=== PATIENT | female | born 1980 | race American Indian/Alaskan Native ===

== ENCOUNTER 2017-04-28 18:20 | Observation (INO) | payer MEDICAID, OTHER ==
[2017-04-28 18:31] VITALS: BMI 50.8
[2017-04-28] MEDS ORDERED: Sodium Chloride 0.9% 1,000 ML IV STA (18:46)
--- NOTE | 2017-04-28 18:54 | ED PDOC ---
Arrival/HPI - General Chief Complaint: Abdominal Pain Time Seen by Provider: 04/28/17 18:23 Historian: Patient - History of Present Illness Narrative History of Present Illness (Text): 04/28/17 18:47 36yr old female presents today with upper and lower right sided abdominal pain that started suddenly at 4pm today and has been worsening. no medications taken for pain at home. pt states she hasnt had anything to eat since noon. pt denies back pain. no fever/chills. no vomiting. no diarrhea. no urinary symptoms. no cp or sob. no other complaints. Time/Duration: 1-3 hours Symptom Onset: Sudden Symptom Course: Worsening Quality: Stabbing Severity Level: 9 Past Medical History - Provider Review Nursing Documentation Reviewed: Yes - Travel History Have you recently traveled outside [place] w/in the past 3 mons?: No - Tetanus Immunization Tetanus Immunization: Unknown - Past Medical History Past Medical History: No Previous - Cardiac Hx Cardiac Disorders: No - Pulmonary Hx Respiratory Disorders: No - Neurological Hx Neurological Disorder: No - HEENT Hx HEENT Disorder: No - Renal Hx Renal Disorder: No - Endocrine/Metabolic Hx Endocrine Disorders: No - Hematological/Oncological Hx Blood Disorders: No - Integumentary Hx Dermatological Disorder: No - Musculoskeletal/Rheumatological Hx Musculoskeletal Disorders: No - Gastrointestinal Hx Gastrointestinal Disorders: No - Genitourinary/Gynecological Hx Genitourinary Disorders: No - Psychiatric Hx Psychophysiologic Disorder: No Hx Substance Use: No - Surgical History Hx Gastric Bypass Surgery: Yes (sleeve) Other/Comment: ectopic pregnanacy 2007 - Anesthesia Hx Anesthesia: Yes - Suicidal Assessment Feels Threatened In Home Enviroment: No Family/Social History - Physician Review Nursing Documentation Reviewed: Yes Family/Social History: Unknown Family HX Smoking Status: Never Smoked Hx Alcohol Use: No Hx Substance Use: No Hx Substance Use Treatment: No Allergies/Home Meds Allergies/Adverse Reactions: Allergies No Known Allergies Allergy (Verified 04/28/17 18:31) Home Medications: Home Meds Medication Instructions Recorded Confirmed Multivit with [employer]inerals 1 tab PO DAILY 04/28/17 04/28/17 [Theratrum Complete 50 Plus] Review of Systems - Review of Systems Constitutional: absent: Fatigue, Fevers Respiratory: absent: SOB, Cough Cardiovascular: absent: Chest Pain, Palpitations Gastrointestinal: Abdominal Pain. absent: Constipation, Diarrhea, Vomiting Genitourinary Female: absent: Dysuria, Frequency, Hematuria, Vaginal Bleeding, Vaginal Discharge Musculoskeletal: absent: Arthralgias, Neck Pain Skin: absent: Rash, Pruritis Neurological: absent: Headache, Dizziness Psychiatric: absent: Anxiety, Depression Physical Exam Vital Signs Reviewed: Yes Vital Signs Temp Pulse Resp BP Pulse Ox 04/29/17 01:43 88 19 125/98 H 100 04/28/17 21:10 89 16 121/71 99 04/28/17 18:31 98.7 F 75 18 114/74 100 Temperature: Afebrile Blood Pressure: Normal Pulse: Regular Respiratory Rate: Normal Appearance: Positive for: Well-Appearing, Non-Toxic, Comfortable Pain Distress: None Mental Status: Positive for: Alert and Oriented X 3 - Systems Exam Head: Present: Atraumatic Mouth: Present: Moist Mucous Membranes Respiratory/Chest: Present: Clear to Auscultation, Good Air Exchange. No: Respiratory Distress, Accessory Muscle Use Cardiovascular: Present: Regular Rate and Rhythm, Normal S1, S2. No: Murmurs Abdomen: Present: Tenderness (RUQ/RLQ and epigastric tenderness), Normal Bowel Sounds, Guarding (voluntary). No: Distention, Peritoneal Signs, Rebound Upper Extremity: Present: Normal ROM Lower Extremity: Present: Normal ROM Neurological: Present: GCS=15, Speech Normal Skin: Present: Warm, Dry, Normal Color. No: Rashes Psychiatric: Present: Alert, Oriented x 3 Medical Decision Making ED Course and Treatment: 04/28/17 18:58 Patient is nontoxic well appearing with stable vital signs presenting with abdominal pain CBC wnl CMP elevated lfts Lipase wnl Urinalysis wnl Ultrasound:FINDINGS: FINDINGS: Liver: Normal in echogenicity and increased in size measuring 18.3 cm in longitudinal dimension. No intrahepatic bile duct dilation. Gallbladder: Stones and sludge are identified within the gallbladder, which is otherwise unremarkable. Common bile duct: No stones. No dilation, measuring 4.7 mm. Pancreas: Visualization of the pancreas is limited by overlying bowel gas. Right kidney: Unremarkable in echogenicity and size measuring 11.7 x 4.7 x 4.7 cm. No acute findings. No hydronephrosis. Left Kidney: Unremarkable in echogenicity and size measuring 12.5 x 6.1 x 5.7 cm. No hydronephrosis. Spleen: Unremarkable in echogenicity and size, measuring 10.4 x 4.1 x 3.4 cm. Aorta: Unremarkable. Inferior vena cava: patent. IMPRESSION: Hepatomegaly. Cholelithiasis, without sonographic evidence of cholecystitis, as detailed above. Otherwise, unremarkable sonographic evaluation of the abdomen, as detailed above CAT scan: FINDINGS: Mild cardiomegaly. The liver, spleen, pancreas and adrenal glands demonstrate no acute abnormalities. Dilated gallbladder. Biliary duct appears mildly prominent. Ultrasound can provide more sensitive evaluation of the biliary system. The kidneys are symmetric with no evidence of hydronephrosis. Duplicated left collecting system. The aorta is normal in caliber. Evaluation of the bowel limited without enteric contrast. Surgical sutures along stomach, correlate with history. No small bowel obstruction. The appendix is not clearly identified. Areas of the bowel wall prominence may be due to lack of distention, cannot exclude mild inflammation of the study. Fat containing supraumbilical and umbilical hernia. Limited evaluation of the pelvic viscera. Further evaluation can be performed with dedicated ultrasound as warranted. No significant ascites. No free air. Degenerative changes. IMPRESSION: Dilated gallbladder. Biliary duct appears mildly prominent. Ultrasound can provide more sensitive evaluation of the biliary system. Evaluation of the bowel limited without enteric contrast. Surgical sutures along stomach, correlate with history. The appendix is not clearly identified. Areas of the bowel wall prominence may be due to lack of distention, cannot exclude mild inflammation of the study. Fat containing supraumbilical and umbilical hernia. Limited evaluation of the pelvic viscera. Further evaluation can be performed with dedicated ultrasound as warranted. Additional details/findings as above. Correlate clinically. Followup as warranted Patient reassessment: pt with continued pain despite multiple doses of morphine and toradol. Discussed all results with patient in depth case discussed with dr. Conroy covering for dr. thorpe; accepts admission; surgical consult/hida scan. case discussed with resident dr. Ragsdale Impression: Abdominal pain, intractable, gallstones admit observational status to med/surg 04/29/17 02:55 - Lab Interpretations Lab Results: 04/28/17 20:07 04/28/17 18:46 Lab Results 04/28/17 20:07: WBC 7.3 D, RBC 4.92, Hgb 11.3 L, Hct 35.5 L, MCV 72.2 L, MCH 23.0 L, MCHC 31.8, RDW 16.5 H, Plt Count 210, MPV 10.2, Gran % 78.6 H, Lymph % ( Auto) 14.2 L, [place] % (Auto) 5.9, Eos % (Auto) 1.2 L, Baso % (Auto) 0.1, Gran # 5.71, Lymph # 1.0 L, [place] # 0.4, Eos # 0.1, Baso # 0.01 04/28/17 19:00: Urine Color Yellow, Urine Appearance Clear, Urine pH 7.0, Ur Specific [place] 1.015, Urine Protein Negative, Urine Glucose (UA) Negative, Urine Ketones Negative, Urine Blood Negative, Urine Nitrate Negative, Urine Bilirubin Negative, Urine Urobilinogen 1.0 H, Ur Leukocyte Esterase Negative 04/28/17 18:46: Sodium 140, Potassium 4.7, Chloride 105, Carbon Dioxide 23, Anion Gap 17, BUN 12, Creatinine 0.8, Est GFR ( Amer) > 60, Est GFR (Non- Af Amer) > 60, Random Glucose 104, Calcium 9.0, Total Bilirubin 0.7, AST 105 H, ALT 63 H, Alkaline Phosphatase 85, Total Protein 8.0, Albumin 4.1, Globulin 3.9 , Albumin/Globulin Ratio 1.1, Lipase 136 - RAD Interpretation Radiology Orders: 04/28/17 18:46 CHEST PORTABLE [RAD] Stat 04/28/17 18:54 ABD & PELVIS IV CONTRAST ONLY [CT] Stat 04/28/17 22:08 ABDOMEN COMPLETE [US] Stat - Medication Orders Current Medication Orders: Discontinued Medications Famotidine (Pepcid) 20 mg IVP STAT STA Stop: 04/28/17 18:47 Last Admin: 04/28/17 19:17 Dose: 20 mg IVP Administration Document 04/28/17 19:17 (Rec: 04/28/17 19:17 YP [id number]) Charges for Administration # of IVP Administrations 1 Sodium Chloride (Sodium Chloride 0.9%) 1,000 mls @ 999 mls/hr IV .Q1H1M STA Stop: 04/28/17 19:46 Last Admin: 04/28/17 19:16 Dose: 999 mls/hr eMAR Start Stop Document 04/28/17 19:16 YP (Rec: 04/28/17 19:17 YP [id number]) Intravenous Solution Start Date 04/28/17 Start Time 19:17 End Date 04/28/17 End time 20:17 Total Infusion Time 60 Ketorolac Tromethamine (Toradol) 30 mg IVP STAT STA Stop: 04/28/17 19:27 Last Admin: 04/28/17 19:56 Dose: 30 mg MAR Pain Assessment Document 04/28/17 19:56 YP (Rec: 04/28/17 19:56 YP [id number]) Pain Reassessment Is this a pain reassessment? Yes Sleep Is patient sleeping during reassessment? No Presence of Pain Presence of Pain Yes IVP Administration Document 04/28/17 19:56 YP (Rec: 04/28/17 19:56 YP [id number]) Charges for Administration # of IVP Administrations 1 Morphine Sulfate (Morphine) 4 mg IVP STAT STA Stop: 04/28/17 22:16 Last Admin: 04/29/17 01:47 Dose: 4 mg MAR Pain Assessment Document 04/29/17 01:47 CAST (Rec: 04/29/17 01:[email or web address] Pain Reassessment Is this a pain reassessment? No Sleep Is patient sleeping during reassessment? No Presence of Pain Presence of Pain Yes Pain Scale Used Pain Scale Used Numeric Location Pain Location Body Site Abdomen Description Description Constant Intensity of Pain at present 9 Pain Behavior Facial Grimacing Aggravating Factors Changing Position Alleviating Factors/Management Position Change Techniques Alleviating Factors Medication IVP Administration Document 04/29/17 01:47 [email or web address] (Rec: 04/29/17 01:[email or web address] Charges for Administration # of IVP Administrations 1 Morphine Sulfate (Morphine) 4 mg IVP STAT STA Stop: 04/29/17 01:10 Disposition/Present on Arrival - Present on Arrival Any Indicators Present on Arrival: No History of DVT/PE: No History of Uncontrolled Diabetes: No Urinary Catheter: No History of Decub. Ulcer: No History Surgical Site Infection Following: None - Disposition Have Diagnosis and Disposition been Completed?: Yes Diagnosis: Gallstones, Intractable abdominal pain Disposition: HOSPITALIZED Disposition Time: 22:00 Patient Plan: Admission Condition: FAIR Forms: [employer] (Mauritian)
[2017-04-28 19:20] LABS: URINE BILIRUBIN NEGATIVE (NEGATIVE); URINE BLOOD NEGATIVE (NEGATIVE); URINE GLUCOSE (UA) NEGATIVE (NEGATIVE); URINE KETONE NEGATIVE (NEGATIVE); URINE LEUKOCYTE ESTERASE NEGATIVE Leu/uL (NEGATIVE); URINE PROTEIN NEGATIVE mg/dL (<30 mg/dL)
[2017-04-28 19:25] LABS: URINE APPEARANCE CLEAR (CLEAR); URINE COLOR YELLOW (YELLOW)
[2017-04-28 19:33] LABS: ALB/GLOB RATIO 1.1 (1.1-1.8); ALKALINE PHOSPHATASE 85 U/L (38-126); ALT/SGPT 63 U/L (7-56); AST/SGOT 105 U/L (14-36); BILIRUBIN,TOTAL 0.7 mg/dL (0.2-1.3); BLOOD UREA NITROGEN 12 mg/dL (7-21); CARBON DIOXIDE 23 mmol/L (21-33); CHLORIDE 105 mmol/L (98-107); GFR AFRICAN-AMERICAN > 60; GLUCOSE,RANDOM 104 mg/dL (70-110); LIPASE 136 U/L (23-300); POTASSIUM 4.7 mmol/L (3.6-5.0); SODIUM 140 mmol/L (132-148)
[2017-04-28 20:18] LABS: BASO # 0.01 K/mm3 (0.0-2.0); BASO % 0.1 % (0.0-3.0); EOS # 0.1 (0.0-0.7); EOS % 1.2 % (1.5-5.0); GRAN # 5.71 (1.4-6.5); GRAN % 78.6 % (50.0-68.0); HEMATOCRIT 35.5 % (36.0-48.0); LYMPH % 14.2 % (22.0-35.0); MEAN CELL VOLUME 72.2 fl (80.0-105.0); MEAN CORPUSCULAR HGB CONC 31.8 g/dl (31.0-37.0); MEAN PLATELET VOLUME 10.2 fl (7.0-11.0); MONO # 0.4 (0.1-0.6); MONO % 5.9 % (1.0-6.0); RED CELL DISTRIBUTION WIDTH 16.5 % (11.5-14.5); WHITE BLOOD COUNT 7.3 10^3/ul (4.5-11.0)
[2017-04-28] MEDS ORDERED: Iohexol 350 MG/100 ML VIAL ONE (20:23)
--- NOTE | 2017-04-28 22:01 | CT ---
EXAM: CT Abdomen and Pelvis With Intravenous Contrast CLINICAL HISTORY: 36 years old, female; Pain; Abdominal pain; Acute; Additional info: Abd pain TECHNIQUE: Axial computed tomography images of the abdomen and pelvis with intravenous contrast. All CT scans at this facility use one or more dose reduction techniques, viz.: automated exposure control; ma/kV adjustment per patient size (including targeted exams where dose is matched to indication; i.e. head); or iterative reconstruction technique. Coronal and sagittal reformatted images were created and reviewed. CONTRAST: 100 mL of omni 350 administered intravenously. COMPARISON: No relevant prior studies available. FINDINGS: Mild cardiomegaly. The liver, spleen, pancreas and adrenal glands demonstrate no acute abnormalities. Dilated gallbladder. Biliary duct appears mildly prominent. Ultrasound can provide more sensitive evaluation of the biliary system. The kidneys are symmetric with no evidence of hydronephrosis. Duplicated left collecting system. The aorta is normal in caliber. Evaluation of the bowel limited without enteric contrast. Surgical sutures along stomach, correlate with history. No small bowel obstruction. The appendix is not clearly identified. Areas of the bowel wall prominence may be due to lack of distention, cannot exclude mild inflammation of the study. Fat containing supraumbilical and umbilical hernia. Limited evaluation of the pelvic viscera. Further evaluation can be performed with dedicated ultrasound as warranted. No significant ascites. No free air. Degenerative changes. IMPRESSION: Dilated gallbladder. Biliary duct appears mildly prominent. Ultrasound can provide more sensitive evaluation of the biliary system. Evaluation of the bowel limited without enteric contrast. Surgical sutures along stomach, correlate with history. The appendix is not clearly identified. Areas of the bowel wall prominence may be due to lack of distention, cannot exclude mild inflammation of the study. Fat containing supraumbilical and umbilical hernia. Limited evaluation of the pelvic viscera. Further evaluation can be performed with dedicated ultrasound as warranted. Additional details/findings as above. Correlate clinically. Followup as warranted.
[2017-04-28] MEDS ORDERED: Morphine 4 mg/ml ISec IVP STA (22:15)
--- NOTE | 2017-04-29 00:33 | US ---
EXAM: US Abdomen Complete CLINICAL HISTORY: 36 years old, female; Pain; Abdominal pain; Epigastric; Additional info: Ruq abd pain TECHNIQUE: Real-time ultrasound of the abdomen (complete) with image documentation. COMPARISON: CT - ABD PELVIS IV CONTRAST ONLY 04/28/2017 8:38:44 PM FINDINGS: Liver: Normal in echogenicity and increased in size measuring 18.3 cm in longitudinal dimension. No intrahepatic bile duct dilation. Gallbladder: Stones and sludge are identified within the gallbladder, which is otherwise unremarkable. Common bile duct: No stones. No dilation, measuring 4.7 mm. Pancreas: Visualization of the pancreas is limited by overlying bowel gas. Right kidney: Unremarkable in echogenicity and size measuring 11.7 x 4.7 x 4.7 cm. No acute findings. No hydronephrosis. Left Kidney: Unremarkable in echogenicity and size measuring 12.5 x 6.1 x 5.7 cm. No hydronephrosis. Spleen: Unremarkable in echogenicity and size, measuring 10.4 x 4.1 x 3.4 cm. Aorta: Unremarkable. Inferior vena cava: patent. IMPRESSION: Hepatomegaly. Cholelithiasis, without sonographic evidence of cholecystitis, as detailed above. Otherwise, unremarkable sonographic evaluation of the abdomen, as detailed above.
[2017-04-29] MEDS ORDERED: Morphine 4 mg/ml ISec IVP STA (01:09)
[2017-04-29] MEDS ORDERED: Sodium Chloride 0.9% 1,000 ML IV SCH ×2 (04:15)
[2017-04-29 04:54] VITALS: O2SAT 99
--- NOTE | 2017-04-29 05:31 | CP.PCM.HP ---
History of Present Illness - History of Present Illness History of Present Illness: CC: Epigastric Pain HPI: Pt is a 36 yo female with PMHx of PCOS presents with c/o of epigastric pain that radiates to RUQ since 4 pm on 04/28/17. Pt denies any inciting activity. Pt had similar occurrence 1 year ago and was seen at the [facility] [place] ED. Work up at that time was negative. Today, patient describes the pain as constant and sharp. Pt denies any aggravating factors, including post-prandial pain or positional pain. Pt denies any alleviating factors. Pain worsened throughout the day, which lead pt to seek medical attention. Pt denies CP, SOB, n/v/d, melena, BRBPR, hemoptysis, chills, fever, dysuria, MEDINA, or dizziness. PMD: [place] PHMx: PCOS Surg: Gastric sleeve (2014), Ectopic (2006) FHx: Non-contributory All: NKDA SH: Denied tobacco, EtOH, or illicit drug use Meds: Multivitamin, Metformin, Clomiphene Present on Admission - Present on Admission Any Indicators Present on Admission: No Review of Systems - Review of Systems All systems: reviewed and no additional remarkable complaints except (what is stated in HPI.) Past Patient History - Tetanus Immunizations Tetanus Immunization: Unknown - Past Social History Smoking Status: Never Smoked - CARDIAC Hx Cardiac Disorders: No - PULMONARY Hx Respiratory Disorders: No - NEUROLOGICAL Hx Neurological Disorder: No - HEENT Hx HEENT Problems: No - RENAL Hx Chronic Kidney Disease: No - ENDOCRINE/METABOLIC Hx Endocrine Disorders: No - HEMATOLOGICAL/ONCOLOGICAL Hx Blood Disorders: No - INTEGUMENTARY Hx Dermatological Problems: No - MUSCULOSKELETAL/RHEUMATOLOGICAL Hx Musculoskeletal Disorders: No - GASTROINTESTINAL Hx Gastrointestinal Disorders: No - GENITOURINARY/GYNECOLOGICAL Hx Genitourinary Disorders: No - PSYCHIATRIC Hx Psychophysiologic Disorder: No Hx Substance Use: No - SURGICAL HISTORY Hx Gastric Bypass Surgery: Yes (sleeve) Other/Comment: ectopic pregnanacy 2007 - ANESTHESIA Hx Anesthesia: Yes Meds Allergies/Adverse Reactions: Allergies Allergy/AdvReac Type Severity Reaction Status Date / Time No Known Allergies Allergy Verified 04/28/17 18:31 Physical Exam - Constitutional Appears: No Acute Distress - Head Exam Head Exam: ATRAUMATIC, NORMOCEPHALIC - Eye Exam Eye Exam: EOMI, PERRL Pupil Exam: PERRL - ENT Exam ENT Exam: Mucous Membranes Moist - Neck Exam Neck exam: Positive for: Full Rom. Negative for: Lymphadenopathy, Tenderness, Thyromegaly - Respiratory Exam Respiratory Exam: Clear to Auscultation Bilateral. absent: Accessory Muscle Use , Decreased Breath Sounds, Rales, Rhonchi, Wheezes, Respiratory Distress - Cardiovascular Exam Cardiovascular Exam: RRR, +S1, +S2. absent: Diastolic murmur, Gallop, Rubs, Systolic Murmur - GI/Abdominal Exam GI & Abdominal Exam: Normal Bowel Sounds, Tenderness (epigastric and RUQ). absent: Distended, Guarding, Organomegaly, Rebound, Rigid - Extremities Exam Extremities exam: Positive for: normal inspection - Neurological Exam Neurological exam: Alert, CN II-XII Intact, Oriented x3 - Psychiatric Exam Psychiatric exam: Normal Affect, Normal Mood - Skin Skin Exam: Dry, Intact, Normal Color, Warm Results - Vital Signs Recent Vital Signs: Last Vital Signs Temp 98.9 F 04/29/17 04:54 Pulse 89 04/29/17 04:54 Resp 18 04/29/17 05:18 BP 129/99 H 04/29/17 04:54 Pulse Ox 99 04/29/17 05:18 - Labs Result Diagrams: 04/28/17 20:07 04/28/17 18:46 Assessment & Plan - Assessment and Plan (Free Text) Assessment: 36 yo F with PMH of PCOS admitted for evaluation and treatment of cholelithiasis with possible cholecystisis. Plan: 1. Cholelithiasis, r/o cholecysitis - CT abdomen showed dilated gallbladder, biliary duct mildly prominent - US abdomen showed cholelithiasis without evidence of cholecystis, CBD 4.7 mm, hepatomegaly - UA negative - Surgery consulted - F/u HIDA scan - LFT mildly elevated, ALP normal (83) - NPO until surgical eval GI/DVT PPx - Protonix - SCDs Pt discussed in detail with Dr. Conroy. Robinson Ragsdale, PGY1
[2017-04-29] MEDS ORDERED: Pneumococcal 23-Valent Vaccine IM ONE (06:07)
--- NOTE | 2017-04-29 06:12 | CP.PCM.CON ---
History of Present Illness - History of Present Illness History of Present Illness: SURGERY CONSULT NOTE FOR DR. KEENE Consult: RUQ pain 36F presents with abdominal pain that started one day ago. She states the pain is located in the epigastric/RUQ region. She describes it as sharp and intermittent. Patient states she has had this type of pain before but associated it with gas ad usually took Tums for it which used to help. She denies any association with food, nausea and vomiting. She states it is not associated with fevers, chills. No change in bowel movement. PMH: denies PSH: Sleeve (2014), evacuation of ectopic () Social: denies tobacco, alcohol and illicit drugs Allergies: NKDA Past Patient History - Tetanus Immunizations Tetanus Immunization: Unknown - Past Social History Smoking Status: Never Smoked - CARDIAC Hx Cardiac Disorders: No - PULMONARY Hx Respiratory Disorders: No - NEUROLOGICAL Hx Neurological Disorder: No - HEENT Hx HEENT Problems: No - RENAL Hx Chronic Kidney Disease: No - ENDOCRINE/METABOLIC Hx Endocrine Disorders: No - HEMATOLOGICAL/ONCOLOGICAL Hx Blood Disorders: No - INTEGUMENTARY Hx Dermatological Problems: No - MUSCULOSKELETAL/RHEUMATOLOGICAL Hx Falls: No - GASTROINTESTINAL Hx Gastrointestinal Disorders: No - GENITOURINARY/GYNECOLOGICAL Hx Genitourinary Disorders: No - PSYCHIATRIC Hx Substance Use: No - SURGICAL HISTORY Hx Gastric Bypass Surgery: Yes (sleeve) Other/Comment: ectopic pregnanacy 2006 - ANESTHESIA Hx Anesthesia: Yes Meds Allergies/Adverse Reactions: Allergies Allergy/AdvReac Type Severity Reaction Status Date / Time No Known Allergies Allergy Verified 04/28/17 18:31 - Medications Medications: Current Medications Acetaminophen (Tylenol 325mg Tab) 650 mg PO Q4H PRN PRN Reason: Pain, Mild (1-3) Sodium Chloride (Sodium Chloride 0.9%) 1,000 mls @ 150 mls/hr IV .Q6H40M [facility] Last Admin: 04/29/17 05:18 Dose: 150 mls/hr Pantoprazole Sodium (Protonix Inj) 40 mg IVP DAILY [facility] Physical Exam - Constitutional Appears: Non-toxic, No Acute Distress Additional comments: obese - Head Exam Head Exam: ATRAUMATIC - ENT Exam ENT Exam: Mucous Membranes Moist - Respiratory Exam Respiratory Exam: Clear to Auscultation Bilateral, NORMAL BREATHING PATTERN - Cardiovascular Exam Cardiovascular Exam: REGULAR RHYTHM, +S1, +S2 - GI/Abdominal Exam GI & Abdominal Exam: Soft, Tenderness (RUQ tenderness). absent: Distended, Firm , Guarding, Rebound, Rigid Additional comments: previous surgical scars noted - Extremities Exam Extremities exam: Negative for: pedal edema, tenderness - Neurological Exam Neurological exam: Alert, Oriented x3 - Psychiatric Exam Psychiatric exam: Normal Affect, Normal Mood - Skin Skin Exam: Dry, Intact, Normal Color, Warm Results - Vital Signs Recent Vital Signs: Last Vital Signs Temp 98 F 04/29/17 05:56 Pulse 70 04/29/17 05:56 Resp 16 04/29/17 05:56 BP 106/64 04/29/17 05:56 Pulse Ox 99 04/29/17 05:18 - Labs Result Diagrams: 04/28/17 20:07 04/28/17 18:46 Assessment & Plan - Assessment and Plan (Free Text) Assessment: 36F with biliary colic/cholecystitis CT: Gallbladder distention, gordon/umb hernia US: Cholelithiasis/sludge, 4.7mm CBD, no choledocholethiasis Plan: NPO, IVF anti-emetic, pain control f/u AM labs F/u HIDA scan OR plan to be determined DVT/GI ppx Further recs discuss with Dr. Darío Dean, PGY2
[2017-04-29 07:17] LABS: HEMATOCRIT 33.5 % (36.0-48.0); MEAN CELL VOLUME 71.1 fl (80.0-105.0); MEAN CORPUSCULAR HEMOGLOBIN 22.7 pg (25.0-35.0); MEAN CORPUSCULAR HGB CONC 31.9 g/dl (31.0-37.0); MEAN PLATELET VOLUME 10.2 fl (7.0-11.0); RED CELL DISTRIBUTION WIDTH 16.3 % (11.5-14.5); WHITE BLOOD COUNT 5.3 10^3/ul (4.5-11.0)
[2017-04-29 07:39] LABS: ALKALINE PHOSPHATASE 107 U/L (38-126); ALT/SGPT 347 U/L (7-56); AST/SGOT 479 U/L (14-36); BILIRUBIN,TOTAL 0.9 mg/dL (0.2-1.3); BLOOD UREA NITROGEN 11 mg/dL (7-21); CALCIUM 8.4 mg/dL (8.4-10.5); CARBON DIOXIDE 24 mmol/L (21-33); CHLORIDE 106 mmol/L (95-110); GFR AFRICAN-AMERICAN > 60; GLUCOSE,RANDOM 85 mg/dL (70-110); MAGNESIUM 1.7 mg/dL (1.7-2.2); POTASSIUM 3.7 mmol/L (3.6-5.0); SODIUM 139 mmol/L (132-148); TOTAL PROTEIN 6.5 g/dL (5.8-8.3)
[2017-04-29 08:14] VITALS: BP 109/70; PULSE 82; RESP 20; TEMP 98.4
--- NOTE | 2017-04-29 08:50 | RAD ---
HISTORY: Abdominal pain COMPARISON: None FINDINGS: LUNGS: The lungs are well inflated and clear. PLEURA: No significant pleural effusion identified, no pneumothorax apparent. CARDIOVASCULAR: The heart is normal in size. OSSEOUS STRUCTURES: No significant abnormalities. VISUALIZED UPPER ABDOMEN: Normal. OTHER FINDINGS: None. IMPRESSION: No active pulmonary disease.
[2017-04-29] MEDS ORDERED: HYDROmorphone 0.5 mg/0.5 ml ISec IVP PRN (09:01)
--- NOTE | 2017-04-29 10:12 | CARD ---
APPROVED REPORT EKG Measurement Heart [id number] <Conclusion> Normal sinus rhythm Incomplete right bundle branch block Borderline ECG
--- NOTE | 2017-04-29 10:53 | CP.PCM.CON ---
<Hong Álvarez - Last Filed: 04/29/17 10:53> History of Present Illness - History of Present Illness History of Present Illness: PGY4 Initial GI Note Solange Kaufman is a 36F w/ hx of obesity s/p gastric sleeve who presented to the ER with complaints of abd pain. Pt states that the pain started 1 day prior to admission. She states that it started as sharp epigastric pain, which then radiated to the RUQ. She notes that since onset it gradually worsened to 10 out of 10 pain. She initially attributed the pain to "gas pain" and preceded to take TUMS without significant improvement. She states that prior to onset, she only consumed chicken. She denied any nausea, vomiting or diarrhea. Denies any fever, chills, or diaphoresis. She states that she has similar pains 1 year ago and came to the ER for further eval, but was sent home after no sig findings. Upon arrival to the ER, CT Abd revealed cholelithiasis. A subsequent abd u/s revealed normal CBD and no stones in the duct. A HIDA scan was performed and waiting of the results. PMH: denies PSH: Sleeve (2014), evacuation of ectopic () Social: denies tobacco, alcohol and illicit drugs Endoscopy hx: none ROS: 12-point ROS conducted, neg other than above Past Patient History - Tetanus Immunizations Tetanus Immunization: Unknown - Past Social History Smoking Status: Never Smoked - CARDIAC Hx Cardiac Disorders: No - PULMONARY Hx Respiratory Disorders: No - NEUROLOGICAL Hx Neurological Disorder: No - HEENT Hx HEENT Problems: No - RENAL Hx Chronic Kidney Disease: No - ENDOCRINE/METABOLIC Hx Endocrine Disorders: No - HEMATOLOGICAL/ONCOLOGICAL Hx Blood Disorders: No - INTEGUMENTARY Hx Dermatological Problems: No - MUSCULOSKELETAL/RHEUMATOLOGICAL Hx Falls: No - GASTROINTESTINAL Hx Gastrointestinal Disorders: No - GENITOURINARY/GYNECOLOGICAL Hx Genitourinary Disorders: No - PSYCHIATRIC Hx Substance Use: No - SURGICAL HISTORY Hx Gastric Bypass Surgery: Yes (sleeve) Other/Comment: ectopic pregnanacy 2007 - ANESTHESIA Hx Anesthesia: Yes Meds Allergies/Adverse Reactions: Allergies Allergy/AdvReac Type Severity Reaction Status Date / Time No Known Allergies Allergy Verified 04/28/17 18:31 - Medications Medications: Current Medications Hydromorphone HCl (Dilaudid) 0.5 mg IVP Q4H PRN PRN Reason: Pain, severe (8-10) Sodium Chloride (Sodium Chloride 0.9%) 1,000 mls @ 150 mls/hr IV .Q6H40M [facility] Last Admin: 04/29/17 05:18 Dose: 150 mls/hr Ondansetron HCl (Zofran Inj) 4 mg IVP Q4H PRN PRN Reason: Nausea/Vomiting Pantoprazole Sodium (Protonix Inj) 40 mg IVP DAILY [facility] Ursodiol (Actigall) 300 mg PO BID [facility] Physical Exam - Constitutional Appears: Well, No Acute Distress - Head Exam Head Exam: ATRAUMATIC, NORMOCEPHALIC - Eye Exam Eye Exam: Normal appearance - ENT Exam ENT Exam: Mucous Membranes Moist - Respiratory Exam Respiratory Exam: Clear to Auscultation Bilateral, NORMAL BREATHING PATTERN. absent: Rales, Rhonchi, Wheezes - Cardiovascular Exam Cardiovascular Exam: REGULAR RHYTHM, +S1, +S2 - GI/Abdominal Exam GI & Abdominal Exam: Normal Bowel Sounds, Soft, Tenderness (RUQ). absent: Guarding, Organomegaly, Rebound, Rigid - Extremities Exam Extremities exam: Negative for: joint swelling, pedal edema - Neurological Exam Neurological exam: Alert, Oriented x3 - Psychiatric Exam Psychiatric exam: Normal Affect, Normal Mood Results - Vital Signs Recent Vital Signs: Last Vital Signs Temp 98.4 F 04/29/17 07:30 Pulse 82 04/29/17 07:30 Resp 20 04/29/17 07:30 BP 109/70 04/29/17 07:30 Pulse Ox 99 04/29/17 07:30 - Labs Result Diagrams: 04/29/17 06:45 04/29/17 06:45 Labs: Laboratory Results - last 24 hr 04/29/17 04/29/17 06:45 06:45 WBC 5.3 D RBC 4.71 Hgb 10.7 L Hct 33.5 L MCV 71.1 L MCH 22.7 L MCHC 31.9 RDW 16.3 H Plt Count 271 MPV 10.2 Sodium 139 Potassium 3.7 Chloride 106 Carbon Dioxide 24 Anion Gap 13 BUN 11 Creatinine 0.6 L Est GFR ( Amer) > 60 Est GFR (Non-Af Amer) > 60 Random Glucose 85 Calcium 8.4 Phosphorus 4.0 Magnesium 1.7 Total Bilirubin 0.9 AST 479 H D ALT 347 H Alkaline Phosphatase 107 Total Protein 6.5 Albumin 3.3 Globulin 3.2 Albumin/Globulin Ratio 1.0 L Assessment & Plan - Assessment and Plan (Free Text) Assessment: Solange Kaufman is a 36F w/ hx of gastric sleece who presents with abd pain. With her rise in LFTs and RUQ pain, r/o cholecystitis. HIDA pending 1. RUQ pain 2. Cholelithiasis 3. Elevated LFTs, etiology likely GB related, though no obvious CBD stone, DDx: infectous etiology, autoimmune, Fatty liver Plan: -CT abd and ultrasound reviewed, no obvious CBD stone. -Continue to trend LFTs daily -awaiting HIDA for surgical plan -will order viral hepatitis panel, will hold on autoimmune w/u for now - continue NPO - If suspicion for CBD stone is still high by surgical team, can consider MRCP - GI px - DVT px D/W Dr. Claudio <Eugene Claudio - Last Filed: 04/29/17 11:26> Meds - Medications Medications: Current Medications Hydromorphone HCl (Dilaudid) 0.5 mg IVP Q4H PRN PRN Reason: Pain, severe (8-10) Sodium Chloride (Sodium Chloride 0.9%) 1,000 mls @ 150 mls/hr IV .Q6H40M [facility] Last Admin: 04/29/17 05:18 Dose: 150 mls/hr Ondansetron HCl (Zofran Inj) 4 mg IVP Q4H PRN PRN Reason: Nausea/Vomiting Pantoprazole Sodium (Protonix Inj) 40 mg IVP DAILY [facility] Ursodiol (Actigall) 300 mg PO BID [facility] Results - Vital Signs Recent Vital Signs: Last Vital Signs Temp 98.4 F 04/29/17 07:30 Pulse 82 04/29/17 07:30 Resp 20 04/29/17 07:30 BP 109/70 04/29/17 07:30 Pulse Ox 99 04/29/17 07:30 - Labs Result Diagrams: 04/29/17 06:45 04/29/17 06:45 Labs: Laboratory Results - last 24 hr 04/29/17 04/29/17 06:45 06:45 WBC 5.3 D RBC 4.71 Hgb 10.7 L Hct 33.5 L MCV 71.1 L MCH 22.7 L MCHC 31.9 RDW 16.3 H Plt Count 271 MPV 10.2 Sodium 139 Potassium 3.7 Chloride 106 Carbon Dioxide 24 Anion Gap 13 BUN 11 Creatinine 0.6 L Est GFR ( Amer) > 60 Est GFR (Non-Af Amer) > 60 Random Glucose 85 Calcium 8.4 Phosphorus 4.0 Magnesium 1.7 Total Bilirubin 0.9 AST 479 H D ALT 347 H Alkaline Phosphatase 107 Total Protein 6.5 Albumin 3.3 Globulin 3.2 Albumin/Globulin Ratio 1.0 L Attending/Attestation - Attestation I have personally seen and examined this patient.: Yes I have fully participated in the care of the patient.: Yes I have reviewed all pertinent clinical information: Yes Notes (Text): 04/29/17 11:18 I have seen and examined patient with GI fellow. Agree with above documentation with the following additions. In brief, this is a 36 year old female with history of obesity s/p sleeve gastrectomy in 2014 with resulting 150 pound weight loss who presents to hospital with complaint of sudden onset abdominal pain which began yesterday at 4 pm while sitting on couch. Prior to this she was in usual state of health. She ate baked chicken for lunch prior to symptom onset. She describes a sharp, 10/10 intensity epigastric pain that radiated to RUQ and did not appear related to food consumption. She took Tums without any significant relief in pain and came to hospital. There was no reported nausea, vomiting, diarrhea, fever/chills, NSAID use, or change in bowel habits. No prior endoscopic evaluation. Obesity, s/p sleeve gastrectomy Sudden onset abdominal pain Transaminitis Abdominal US and CT imaging reviewed by me showing normal caliber CBD without intrahepatic biliary dilation. +cholelithiasis and GB sludge. - NPO - HIDA has been ordered by surgical team. My initial interpretation is negative study with patency of cystic duct, await final results - Obtain viral hepatitis and autoimmune panels - Clinical scenario suggestive of biliary colic without obvious obstructive pathology, follow up surgical recommendations - Can consider MRCP for further evaluation, though unlikely to provide additional information - Continue to monitor LFTs
[2017-04-29 11:19] LABS: IRON 89 ug/dL (45-180)
--- NOTE | 2017-04-29 11:20 | NM ---
PROCEDURE: Nuclear Medicine Hepatobiliary Scan HISTORY: RUQ pain COMPARISON: None available. TECHNIQUE: 7.6 mCi of technetium 99m Mebrofenin was administered intravenously. Planar images of the abdomen were obtained at 5 min intervals to 60 mins. Delayed images were also obtained. FINDINGS: LIVER: Timely and homogenous uptake. COMMON BILE DUCT: identified at 15 mins. GALLBLADDER: identified at 15 mins. SMALL BOWEL: Identified at 30 mins. IMPRESSION: Normal Hepatobiliary Scan. The cystic duct is patent.
--- NOTE | 2017-04-29 11:57 | CON ---
DATE: HISTORY OF PRESENT ILLNESS: She is admitted with abdominal pain mostly in the right upper quadrant. Vital signs are normal with blood pressure about 110/70. She weighs 260 pounds, having had a gastric sleeve operation. Admitted with right upper quadrant pain. Ultrasound yesterday showed hepatomegaly, cholelithiasis, sonographic evidence of cholecystitis, common duct 4.7 mm. CAT scan is done, presently reviewed is done with IV contrast, but not oral. Gallbladder is distended, not thick walled. Common duct is visible on the CAT scan, but does not seem to be dilated, obstruction. Official report by Dr. Rodriguez is otherwise unremarkable. LABORATORY DATA: Reveals a white count of 5, hemoglobin 10.7. SMA-18 shows increasing AST and ALT to 479 and 347. Alkaline phosphatase and bili are normal. Gallbladder is visualized for the 15 minutes. Right upper quadrant could be related to hepatomegaly. We will do serological workup. GI is called. Maninder Chanel MD
--- NOTE | 2017-04-29 15:01 | CP.PCM.DIS ---
Provider - Provider Date of Admission: 04/29/17 02:15 Attending physician: Roque Castro MD Primary care physician: Bertin Bravo MD Time Spent in preparation of Discharge (in minutes): 70 Hospital Course - Lab Results Lab Results: Most Recent Lab Values WBC 5.3 10^3/ul (4.5-11.0) D 04/29/17 06:45 RBC 4.71 10^6/uL (3.5-6.1) 04/29/17 06:45 Hgb 10.7 g/dL (12.0-16.0) L 04/29/17 06:45 Hct 33.5 % (36.0-48.0) L 04/29/17 06:45 MCV 71.1 fl (80.0-105.0) L 04/29/17 06:45 MCH 22.7 pg (25.0-35.0) L 04/29/17 06:45 MCHC 31.9 g/dl (31.0-37.0) 04/29/17 06:45 RDW 16.3 % (11.5-14.5) H 04/29/17 06:45 Plt Count 271 10^3/uL (120.0-450.0) 04/29/17 06:45 MPV 10.2 fl (7.0-11.0) 04/29/17 06:45 Gran % 78.6 % (50.0-68.0) H 04/28/17 20:07 Lymph % (Auto) 14.2 % (22.0-35.0) L 04/28/17 20:07 [place] % (Auto) 5.9 % (1.0-6.0) 04/28/17 20:07 Eos % (Auto) 1.2 % (1.5-5.0) L 04/28/17 20:07 Baso % (Auto) 0.1 % (0.0-3.0) 04/28/17 20:07 Gran # 5.71 (1.4-6.5) 04/28/17 20:07 Lymph # 1.0 (1.2-3.4) L 04/28/17 20:07 [place] # 0.4 (0.1-0.6) 04/28/17 20:07 Eos # 0.1 (0.0-0.7) 04/28/17 20:07 Baso # 0.01 K/mm3 (0.0-2.0) 04/28/17 20:07 Sodium 139 mmol/L (132-148) 04/29/17 06:45 Potassium 3.7 mmol/L (3.6-5.0) 04/29/17 06:45 Chloride 106 mmol/L (95-110) 04/29/17 06:45 Carbon Dioxide 24 mmol/L (21-33) 04/29/17 06:45 Anion Gap 13 (10-20) 04/29/17 06:45 BUN 11 mg/dL (7-21) 04/29/17 06:45 Creatinine 0.6 mg/dL (0.7-1.2) L 04/29/17 06:45 Est GFR ( Amer) > 60 04/29/17 06:45 Est GFR (Non-Af Amer) > 60 04/29/17 06:45 Random Glucose 85 mg/dL (70-110) 04/29/17 06:45 Calcium 8.4 mg/dL (8.4-10.5) 04/29/17 06:45 Phosphorus 4.0 mg/dL (2.5-4.5) 04/29/17 06:45 Magnesium 1.7 mg/dL (1.7-2.2) 04/29/17 06:45 Iron 89 ug/dL (45-180) 04/29/17 Unknown TIBC 363 ug/dL (265-497) 04/29/17 Unknown % Saturation 24 % (20-55) 04/29/17 Unknown Total Bilirubin 0.9 mg/dL (0.2-1.3) 04/29/17 06:45 AST 479 U/L (14-36) H D 04/29/17 06:45 ALT 347 U/L (7-56) H 04/29/17 06:45 Alkaline Phosphatase 107 U/L (38-126) 04/29/17 06:45 Total Protein 6.5 g/dL (5.8-8.3) 04/29/17 06:45 Albumin 3.3 g/dL (3.0-4.8) 04/29/17 06:45 Globulin 3.2 gm/dL 04/29/17 06:45 Albumin/Globulin Ratio 1.0 (1.1-1.8) L 04/29/17 06:45 Lipase 136 U/L (23-300) 04/28/17 18:46 Urine Color Yellow (YELLOW) 04/28/17 19:00 Urine Appearance Clear (CLEAR) 04/28/17 19:00 Urine pH 7.0 (4.7-8.0) 04/28/17 19:00 Ur Specific [place] 1.015 (1.005-1.035) 04/28/17 19:00 Urine Protein Negative mg/dL (<30 mg/dL) 04/28/17 19:00 Urine Glucose (UA) Negative mg/dL (NEGATIVE) 04/28/17 19:00 Urine Ketones Negative mg/dL (NEGATIVE) 04/28/17 19:00 Urine Blood Negative (NEGATIVE) 04/28/17 19:00 Urine Nitrate Negative (NEGATIVE) 04/28/17 19:00 Urine Bilirubin Negative (NEGATIVE) 04/28/17 19:00 Urine Urobilinogen 1.0 E.U./dL (<1 E.U./dL) H 04/28/17 19:00 Ur Leukocyte Esterase Negative Marc/uL (NEGATIVE) 04/28/17 19:00 - Hospital Course Hospital Course: Pt is a 36 yo female with PMHx of PCOS presents with c/o of epigastric pain that radiates to RUQ since 4 pm on 04/28/17. Pt denied any inciting activity. Pt had similar occurrence 1 year ago and was seen at the [facility]. Work up at that time was negative. Today, patient described the pain as constant and sharp. Pt denied any aggravating factors, including post-prandial pain or positional pain. Pt denied any alleviating factors. Pain worsened throughout the day, which lead pt to seek medical attention. Pt denied CP, SOB, n/v/d, melena, BRBPR , hemoptysis, chills, fever, dysuria, MEDINA, or dizziness. Patient was admitted and evaluated. She was made NPO, given pain medication, and started on fluids. X ray was ordered and obtained. Surgery was consulted. Ct pelvis was done and showed mild inflammation and dilated gallbladder, US was done and showed hepatomegaly with cholelithiasis but no cholecystitis. In addition, HIDA scan was done which was normal. Patients blood work was done and electrolytes monitored. Patients symptoms improved, diet was advanced from NPO to full liquids which she was able to tolerate. She was told to follow up with her PMD. All questions and concerns were addressed. She was told she is welcome to return to the hospital if the pain comes back. Discharge Exam - Head Exam Head Exam: ATRAUMATIC, NORMOCEPHALIC Discharge Plan - Discharge Medications Prescriptions: Ursodiol [Actigall] 300 mg PO BID #60 cap - Follow Up Plan Condition: FAIR Disposition: HOME/ ROUTINE Instructions: Biliary Colic (GEN), Pneumococcal Vaccine for Adults (GEN), Influenza Vaccine (GEN), Acute Abdominal Pain (GEN) Additional Instructions: 1. Pt is to fu with PMD within 1 week 2. Pt is to fu with GI Dr. Kim or as per PMD 3. Pt is to fu with Surgery Dr. Chanel to schedule for elective surgery 4. Pt is to follow a Low fat diet 5. Pt is welcomed to return to [facility] is symptoms change or worsen Referrals: Bertin Bravo MD [Primary Care Provider] - Jordy Kim MD [Staff Provider] - Maninder Chanel MD [Staff Provider] -
== END 2017-04-29 19:41 | disposition home or self-care (01) ==
LOC: ED 18:20 → ERH 04-29 02:15 → 5RNO 04-29 05:27
PROVIDERS: ADMIT Internal Medicine; ATTEND Internal Medicine
DX: K80.20 Calculus of gallbladder without cholecystitis without obstruction (principal); E28.2 Polycystic ovarian syndrome; E66.9 Obesity, unspecified; Z98.84 Bariatric surgery status; I51.7 Cardiomegaly; K42.9 Umbilical hernia without obstruction or gangrene; K82.8 Other specified diseases of gallbladder; R16.0 Hepatomegaly, not elsewhere classified; Z68.42 Body mass index [BMI] 45.0-49.9, adult; R74.0 Nonspecific elevation of levels of transaminase and lactic acid dehydrogenase [LDH]
CPT/HCPCS: 36415; 71010; 74177; 76700; 78227; 80053; 80074; 81003; 82728; 83540; 83550; 83690; 83735; 84100; 85025; 85027; 86255; 93005; 96361; 96374; 96375; 99284; A9537; C9113; G0378; J1885; J2270; J7040; Q9967

== ENCOUNTER 2018-02-11 00:23 | Emergency (ER) | payer MEDICAID, OTHER ==
[2018-02-11 00:23] VITALS: BMI 52.3
[2018-02-11 00:58] VITALS: RESP 18; TEMP 97.9; O2SAT 100
[2018-02-11] MEDS ORDERED: Sodium Chloride 0.9% 1,000 ML IV STA (01:30)
--- NOTE | 2018-02-11 01:37 | ED PDOC ---
Arrival/HPI - General Chief Complaint: Abdominal Pain Time Seen by Provider: 02/11/18 00:54 Historian: Patient - History of Present Illness Narrative History of Present Illness (Text): 02/11/18 01:29 A 37 year old female, whose past medical history includes gastric bypass surgery , presents to the emergency department complaining of abdominal pain and nausea since 20:00. Patient reports she was mopping at home when she suddenly began experiencing the symptoms. States she has not eaten anything unusual, stating she last ate a hotdog, which she mentions she eats all the time during the evenings. Patient denies any other complaints at this time. Also, patient mentions last time she was admitted here in the hospital, she was diagnosed with gallstones and was given medication as treatment. PMD: Located in [place]. Time/Duration: Other (symptoms began 20:00) Symptom Onset: Sudden Symptom Course: Unchanged Past Medical History - Provider Review Nursing Documentation Reviewed: Yes - Tetanus Immunization Tetanus Immunization: Unknown - Past Medical History Past Medical History: No Previous - Cardiac Hx Cardiac Disorders: No - Pulmonary Hx Respiratory Disorders: No - Neurological Hx Neurological Disorder: No - HEENT Hx HEENT Disorder: No - Renal Hx Renal Disorder: No - Endocrine/Metabolic Hx Endocrine Disorders: No - Hematological/Oncological Hx Blood Disorders: No - Integumentary Hx Dermatological Disorder: No - Musculoskeletal/Rheumatological Hx Falls: No - Gastrointestinal Hx Gastrointestinal Disorders: No - Genitourinary/Gynecological Hx Genitourinary Disorders: No - Psychiatric Hx Psychophysiologic Disorder: No Hx Substance Use: No - Surgical History Hx Gastric Bypass Surgery: Yes (sleeve) Other/Comment: ectopic pregnanacy 2007 - Anesthesia Hx Anesthesia: Yes - Suicidal Assessment Feels Threatened In Home Enviroment: No Family/Social History - Physician Review Nursing Documentation Reviewed: Yes Family/Social History: No Known Family HX Smoking Status: Never Smoked Hx Alcohol Use: No Hx Substance Use: No Hx Substance Use Treatment: No Allergies/Home Meds Allergies/Adverse Reactions: Allergies No Known Allergies Allergy (Verified 04/28/17 18:31) Review of Systems - Physician Review All systems were reviewed & negative as marked: Yes - Review of Systems Constitutional: absent: Fevers, Night Sweats Gastrointestinal: Abdominal Pain, Nausea. absent: Diarrhea, Vomiting Genitourinary Female: absent: Urine Output Changes Neurological: absent: Headache, Dizziness Physical Exam Vital Signs Reviewed: Yes Vital Signs Temp Pulse Resp BP Pulse Ox 02/11/18 05:09 80 18 112/62 100 02/11/18 03:15 72 16 116/70 99 02/11/18 00:54 97.9 F 74 18 125/73 100 Temperature: Afebrile Blood Pressure: Normal Pulse: Regular Respiratory Rate: Normal Appearance: Positive for: Well-Appearing, Non-Toxic, Comfortable Pain Distress: None Mental Status: Positive for: Alert and Oriented X 3 - Systems Exam Head: Present: Atraumatic, Normocephalic Respiratory/Chest: Present: Clear to Auscultation, Good Air Exchange. No: Respiratory Distress, Accessory Muscle Use Cardiovascular: Present: Regular Rate and Rhythm, Normal S1, S2. No: Murmurs Abdomen: Present: Tenderness (diffuse) Back: Present: Normal Inspection Upper Extremity: Present: Normal Inspection. No: Cyanosis, Edema Lower Extremity: Present: Normal Inspection. No: Edema Neurological: Present: GCS=15, CN II-XII Intact, Speech Normal Skin: Present: Warm, Dry, Normal Color. No: Rashes Psychiatric: Present: Alert, Oriented x 3, Normal Insight, Normal Concentration Medical Decision Making ED Course and Treatment: 02/11/18 01:31 Impression: 37 year old female with abdominal pain and nausea. Physical exam shows diffuse abdominal tenderness. Plan: -- Abd/Pelvis CT -- Abdominal Ultrasound -- Labs -- Pepcid -- Zofran -- IV Fluids -- Reassess and disposition Prior Visits: Notes and results from previous visits were reviewed. Patient was last seen in the emergency department on 12/26/2017 for epigastric abdominal pain. Patient was discharged home. Progress Notes: 02/11/2018 04:44 Abdominal Ultrasound IMPRESSION: Cholelithiasis noted. The gallbladder wall is not thickened. Sonographic Adhikari sign reported as negative. Dictator: Franky Shepherd MD 02/11/2018 04:51 Abd/Pelvis CT IMPRESSION: Trace free pelvic fluid. Dictator: Franky Shepherd MD - Lab Interpretations Lab Results: 02/11/18 01:45 02/11/18 01:45 Lab Results 02/11/18 01:45: Sodium 141, Potassium 3.8, Chloride 107, Carbon Dioxide 25, Anion Gap 13, BUN 16, Creatinine 0.7, Est GFR ( Amer) > 60, Est GFR (Non- Af Amer) > 60, Random Glucose 110, Calcium 8.7, Magnesium 1.7, Total Bilirubin 0.4, AST 115 H D, ALT 61 H, Alkaline Phosphatase 62, Total Protein 7.5, Albumin 3.7, Globulin 3.8, Albumin/Globulin Ratio 1.0 L, Lipase 5351 H 02/11/18 01:45: WBC 7.8 D, RBC 4.99, Hgb 11.1 L, Hct 34.4 L, MCV 68.9 L, MCH 22.2 L, MCHC 32.3, RDW 16.8 H, Plt Count 285, MPV 9.5, Gran % 76.4 H, Lymph % ( Auto) 14.4 L, [place] % (Auto) 8.0 H, Eos % (Auto) 1.1 L, Baso % (Auto) 0.1, Gran # 5.97, Lymph # (Auto) 1.1 L, [place] # (Auto) 0.6, Eos # (Auto) 0.1, Baso # (Auto ) 0.01 I have reviewed the lab results: Yes - RAD Interpretation Radiology Orders: 02/11/18 01:30 ABD & PELVIS IV CONTRAST ONLY [CT] Stat 02/11/18 01:35 ABDOMEN COMPLETE [US] Stat - Medication Orders Current Medication Orders: Discontinued Medications Famotidine (Pepcid) 20 mg IVP STAT STA Stop: 02/11/18 01:31 Last Admin: 02/11/18 01:50 Dose: 20 mg IVP Administration Document 02/11/18 01:50 CNR (Rec: 02/11/18 01:50 CNR [id number]) Charges for Administration # of IVP Administrations 1 Sodium Chloride (Sodium Chloride 0.9%) 1,000 mls @ 999 mls/hr IV .Q1H1M STA Stop: 02/11/18 02:30 Last Admin: 02/11/18 01:49 Dose: 999 mls/hr eMAR Start Stop Document 02/11/18 01:49 CNR (Rec: 02/11/18 01:50 CNR [id number]) Intravenous Solution Start Date 02/11/18 Start Time 01:50 End Date 02/11/18 End time 02:50 Total Infusion Time 60 Ondansetron HCl (Zofran Inj) 4 mg IVP STAT STA Stop: 02/11/18 01:31 Last Admin: 02/11/18 01:50 Dose: 4 mg IVP Administration Document 02/11/18 01:50 CNR (Rec: 02/11/18 01:50 CNR [id number]) Charges for Administration # of IVP Administrations 1 - Scribe Statement The provider has reviewed the documentation as recorded by the Nina Carrillo Provider Scribe Attestation: All medical record entries made by the Scribe were at my direction and personally dictated by me. I have reviewed the chart and agree that the record accurately reflects my personal performance of the history, physical exam, medical decision making, and the department course for this patient. I have also personally directed, reviewed, and agree with the discharge instructions and disposition. Disposition/Present on Arrival - Present on Arrival Any Indicators Present on Arrival: No History of DVT/PE: No History of Uncontrolled Diabetes: No Urinary Catheter: No History of Decub. Ulcer: No History Surgical Site Infection Following: None - Disposition Have Diagnosis and Disposition been Completed?: Yes Diagnosis: Pancreatitis, Gallstones Disposition: HOME/ ROUTINE Disposition Time: 05:00 Condition: GOOD Discharge Instructions (ExitCare): Pancreatitis (DC), Gallstones (DC) Additional Instructions: SINDY GAVIN, thank you for letting us take care of you today. Your provider was Mango Guajardo DO and you were treated for ABDOMINAL PAIN. The emergency medical care you received today was directed at your acute symptoms. If you were prescribed any medication, please fill it and take as directed. It may take several days for your symptoms to resolve. Return to the Emergency Department if your symptoms worsen, do not improve, or if you have any other problems. Please contact your doctor or call one of the physicians/clinics you have been referred to that are listed on the Patient Visit Information form that is included in your discharge packet. Bring any paperwork you were given at discharge with you along with any medications you are taking to your follow up visit. Our treatment cannot replace ongoing medical care by a primary care provider outside of the emergency department. Thank you for allowing the [facility] team to be part of your care today. Follow up with your primary care doctor in 2-3 days for re-evaluation and further management. Prescriptions: Ranitidine HCl [Zantac] 150 mg PO BID #20 tablet Referrals: [facility], [Non-Staff] - Follow up with primary Forms: [employer] (Bulgarian), WORK NOTE
[2018-02-11 01:56] LABS: BASO # 0.01 K/mm3 (0.0-2.0); BASO % 0.1 % (0.0-3.0); EOS # 0.1 (0.0-0.7); EOS % 1.1 % (1.5-5.0); GRAN # 5.97 (1.4-6.5); GRAN % 76.4 % (50.0-68.0); HEMOGLOBIN 11.1 g/dL (12.0-16.0); LYMPH # 1.1 (1.2-3.4); LYMPH % 14.4 % (22.0-35.0); MEAN CELL VOLUME 68.9 fl (80.0-105.0); MEAN CORPUSCULAR HEMOGLOBIN 22.2 pg (25.0-35.0); MEAN CORPUSCULAR HGB CONC 32.3 g/dl (31.0-37.0); MEAN PLATELET VOLUME 9.5 fl (7.0-11.0); MONO # 0.6 (0.1-0.6); RBC 4.99 10^6/uL (3.5-6.1); RED CELL DISTRIBUTION WIDTH 16.8 % (11.5-14.5); WHITE BLOOD COUNT 7.8 10^3/ul (4.5-11.0)
[2018-02-11 02:02] LABS: ALBUMIN 3.7 g/dL (3.0-4.8); ALT/SGPT 61 U/L (7-56); AST/SGOT 115 U/L (14-36); BLOOD UREA NITROGEN 16 mg/dL (7-21); CALCIUM 8.7 mg/dL (8.4-10.5); GFR AFRICAN-AMERICAN > 60; GFR NON-AFRICAN AMERICAN > 60
[2018-02-11] MEDS ORDERED: Iohexol 350 MG/100 ML VIAL ONE (02:12)
[2018-02-11 02:42] LABS: LIPASE 5351 U/L (23-300)
[2018-02-11 05:11] VITALS: BP 112/62; PULSE 80
--- NOTE | 2018-02-11 10:19 | CT ---
Date of service: 02/11/2018 PROCEDURE: CT Abdomen and Pelvis with contrast HISTORY: diffuse abdominal tenderness - h/o gastric sleeve COMPARISON: 04/28/2017 TECHNIQUE: Contrast dose: 100 mL Omnipaque 350 Please note that the examination is limited because the contrast administration was administered at a diminished rate of injection. Radiation dose: Total exam DLP = 1113.94 mGy-cm. This CT exam was performed using one or more of the following dose reduction techniques: Automated exposure control, adjustment of the mA and/or kV according to patient size, and/or use of iterative reconstruction technique. FINDINGS: LOWER THORAX: Unremarkable. LIVER: Unremarkable. No gross lesion or ductal dilatation. GALLBLADDER AND BILE DUCTS: Unremarkable. PANCREAS: Unremarkable. No gross lesion or ductal dilatation. SPLEEN: Unremarkable. ADRENALS: Unremarkable. No mass. KIDNEYS AND URETERS: Unremarkable. No hydronephrosis. No solid mass. VASCULATURE: Unremarkable. No aortic aneurysm. BOWEL: Status post gastric sleeve procedure. No abnormal bowel loops. No bowel obstruction. No mural thickening of the stomach. APPENDIX: Not identified. No secondary findings to suggest acute appendicitis. PERITONEUM: Trace fluid in the cul-de-sac. LYMPH NODES: Unremarkable. No enlarged lymph nodes. BLADDER: Suboptimally distended. Grossly unremarkable. REPRODUCTIVE: Normal uterus. BONES: No acute fracture. OTHER FINDINGS: None. IMPRESSION: Limited examination. Status post gastric sleeve procedure. Trace fluid in cul-de-sac, nonspecific. No additional abnormality identified. The preliminary findings for this examination were reported by [facility] at 4:51 a.m. on 02/11/2018. There is concurrence of this report with the preliminary findings.
--- NOTE | 2018-02-11 10:48 | US ---
Date of service: 02/11/2018 HISTORY: RUQ tenderness COMPARISON: None. TECHNIQUE: Sonographic evaluation of the abdomen. FINDINGS: LIVER: Measures 19.7 cm. Diffusely increased echogenicity of the liver parenchyma. Consistent with fatty infiltration. No mass. No biliary ductal dilatation. GALLBLADDER: Cholelithiasis. No mural thickening. No pericholecystic fluid. Negative sonographic Adhikari sign. COMMON BILE DUCT: Measures 5 mm. No stones. No dilatation. PANCREAS: Unremarkable as visualized. No mass. No ductal dilatation. RIGHT KIDNEY: Measures 9.3cm. Normal echogenicity. No calculus, mass, or hydronephrosis. LEFT KIDNEY: Measures 12.3cm. Normal echogenicity. No calculus, mass, or hydronephrosis. SPLEEN: Normal in size and contour. No mass. AORTA: No aneurysmal dilatation. IVC: Unremarkable. OTHER FINDINGS: None. IMPRESSION: Cholelithiasis without evidence cholecystitis. Mild hepatomegaly with fatty infiltration of the liver. The preliminary findings for this examination were reported by [facility] at 4:44 a.m. on 02/11/2018. There is concurrence of this report with the preliminary findings.
== END 2018-02-11 05:09 | disposition home or self-care (01) ==
LOC: ED 00:23
DX: K85.90 Acute pancreatitis without necrosis or infection, unspecified (principal); K80.20 Calculus of gallbladder without cholecystitis without obstruction
CPT/HCPCS: 74177; 76700; 80053; 83690; 83735; 85025; 96361; 96374; 96375; 99284; J2405; J7030; Q9967

== ENCOUNTER 2018-04-23 06:16 | Emergency (ER) | payer OTHER ==
[2018-04-23 06:29] VITALS: BMI 52.5
[2018-04-23] MEDS ORDERED: Sodium Chloride 0.9% 1,000 ML IV STA (07:18)
[2018-04-23] MEDS ORDERED: Alum-Mag Hydrox-Simethicone Susp (30 mL) PO STA (07:18)
--- NOTE | 2018-04-23 07:24 | ED PDOC ---
Arrival/HPI - General Chief Complaint: Abdominal Pain Time Seen by Provider: 04/23/18 07:07 Historian: Patient - History of Present Illness Narrative History of Present Illness (Text): 37 y/o F w/ h/o obesity, gallstones, s/p gastric sleeve(2014) presenting to the ED with persistent epigastric pain that awoke her from her sleep this morning. She reports continuous epigastric pain that radiates to the right side of her abdomen and shoulder. She reports intermittent episodes of nausea and retching, but denies emesis, fevers, chest pain, dyspnea, diarrhea/constipation, dizziness, lightheadedness, dysuria, hematuria, belching, flatulence, hematuria or vaginal bleeding. The patient reports having a similar episode in the past where the pain was intermittent in nature. She is unable to identify any triggers or associations with food. LMP 04/05/18. She denies taking any medications for pain at this time. PMD: Dr. Bertin Bravo Time/Duration: 4-6 hours Symptom Onset: Sudden Symptom Course: Unchanged Quality: Cramping, Burning Severity Level: 10 Activities at Onset: Rest Context: Home Past Medical History - Provider Review Nursing Documentation Reviewed: Yes - Travel History Have you recently traveled outside [place] w/in the past 3 mons?: No - Tetanus Immunization Tetanus Immunization: Unknown - Past Medical History Past Medical History: No Previous - Cardiac Hx Cardiac Disorders: No - Pulmonary Hx Respiratory Disorders: No - Neurological Hx Neurological Disorder: No - HEENT Hx HEENT Disorder: No - Renal Hx Renal Disorder: No - Endocrine/Metabolic Hx Endocrine Disorders: No - Hematological/Oncological Hx Blood Disorders: No - Integumentary Hx Dermatological Disorder: No - Musculoskeletal/Rheumatological Hx Falls: No - Gastrointestinal Hx Gastrointestinal Disorders: No - Genitourinary/Gynecological Hx Genitourinary Disorders: No - Psychiatric Hx Psychophysiologic Disorder: No Hx Substance Use: No - Surgical History Hx Gastric Bypass Surgery: Yes (sleeve) Other/Comment: ectopic pregnanacy 2007 - Anesthesia Hx Anesthesia: Yes - Suicidal Assessment Feels Threatened In Home Enviroment: No Family/Social History - Physician Review Nursing Documentation Reviewed: Yes Family/Social History: Unknown Family HX Smoking Status: Never Smoked Hx Alcohol Use: No Hx Substance Use: No Hx Substance Use Treatment: No Allergies/Home Meds Allergies/Adverse Reactions: Allergies No Known Allergies Allergy (Verified 04/28/17 18:31) Review of Systems - Physician Review All systems were reviewed & negative as marked: Yes - Review of Systems Gastrointestinal: Abdominal Pain, Nausea. absent: Stool Changes, Constipation, Diarrhea, Vomiting, Appetite Changes Physical Exam Vital Signs Reviewed: Yes Vital Signs Temp Pulse Resp BP Pulse Ox 04/23/18 06:29 98.1 F 77 18 124/75 100 Temperature: Afebrile Blood Pressure: Normal Pulse: Regular Respiratory Rate: Normal Appearance: Positive for: Well-Appearing, Non-Toxic, Comfortable Pain Distress: Moderate Mental Status: Positive for: Alert and Oriented X 3 - Systems Exam Head: Present: Atraumatic, Normocephalic Pupils: Present: PERRL Extroacular Muscles: Present: EOMI Conjunctiva: Present: Normal Mouth: Present: Moist Mucous Membranes Neck: Present: Normal Range of Motion. No: Meningeal Signs, MIDLINE TENDERNESS Respiratory/Chest: Present: Clear to Auscultation, Good Air Exchange. No: Respiratory Distress, Accessory Muscle Use Cardiovascular: Present: Regular Rate and Rhythm, Normal S1, S2 Abdomen: Present: Tenderness, Normal Bowel Sounds. No: Distention, Rebound, Guarding, Hernias Back: Present: CVA Tenderness (R sided CVA tenderness). No: Midline Tenderness Upper Extremity: Present: Normal Inspection. No: Cyanosis, Edema Lower Extremity: Present: Normal Inspection. No: Edema, CALF TENDERNESS Neurological: Present: GCS=15, CN II-XII Intact, Speech Normal Skin: Present: Warm, Dry, Normal Color. No: Rashes Psychiatric: Present: Alert, Oriented x 3, Normal Insight, Normal Concentration Medical Decision Making ED Course and Treatment: Impression 37 y/o F w/ h/o gastric sleeve w/ complaint of abdominal pain Differential Diagnoses Include But Are Not Limited To: -Pancreatitis -Colitis -SBO -Hiatal Hernia Plan --EKG --Labs --IV fluids --Maalox --Reglan --CT a/p --UA --Reassess & disposition Progress Notes 04/23/18 08:08 Labs reviewed with no evidence of leukocytosis and chemistries within normal limited. Pending CT scan. 04/23/18 10:26 CT a/p reveals no acute intraabdominal abnormalities. Results shared with patient who feels better. She is advised to follow up with he surgeon(Dr. Diaz) and will be given GI follow up. Scripts provided. She is stable for discharge. - Lab Interpretations I have reviewed the lab results: Yes - EKG Interpretation EKG Interpretation (Text): NSR @[address] elevations. No T wave inversions Interpreted by ED Physician: Yes Type: 12 lead EKG Disposition/Present on Arrival - Present on Arrival Any Indicators Present on Arrival: No History of DVT/PE: No History of Uncontrolled Diabetes: No Urinary Catheter: No History of Decub. Ulcer: No History Surgical Site Infection Following: None - Disposition Have Diagnosis and Disposition been Completed?: Yes Diagnosis: Gastritis Disposition: HOME/ ROUTINE Disposition Time: 10:28 Patient Plan: Discharge Patient Problems: Current Active Problems Problem Status Onset Gastritis Acute Condition: IMPROVED Discharge Instructions (ExitCare): Gastritis (DC) Prescriptions: Famotidine [Pepcid] 40 mg PO DAILY 10 Days #10 tablet oxyCODONE/Acetaminophen [Percocet 5/325 mg Tab] 1 ea PO PRN PRN 1 Days #4 tab PRN Reason: Pain, Moderate (4-7) Referrals: Bertin Bravo MD [Primary Care Provider] - Follow up with primary Kathia Parks MD [Medical Doctor] - Follow up with primary Eugene Claudio MD [Staff Provider] - Follow up with primary Forms: [facility] ([place]i), WORK NOTE
[2018-04-23 07:45] LABS: VENOUS BLOOD GAS BASE EXCESS 0.8 mmol/L (0.0-2.0); VENOUS BLOOD GAS PO2 42 mm/Hg (30-55); VENOUS BLOOD PH 7.31 (7.32-7.43)
[2018-04-23 07:46] LABS: BASO # 0.01 K/mm3 (0.0-2.0); BASO % 0.1 % (0.0-3.0); EOS # 0.1 (0.0-0.7); EOS % 1.2 % (1.5-5.0); GRAN # 5.47 (1.4-6.5); GRAN % 74.5 % (50.0-68.0); HEMOGLOBIN 10.7 g/dL (12.0-16.0); LYMPH # 1.2 (1.2-3.4); LYMPH % 16.7 % (22.0-35.0); MEAN CELL VOLUME 68.7 fl (80.0-105.0); MEAN CORPUSCULAR HEMOGLOBIN 21.5 pg (25.0-35.0); MEAN CORPUSCULAR HGB CONC 31.3 g/dl (31.0-37.0); MEAN PLATELET VOLUME 10.2 fl (7.0-11.0); MONO # 0.6 (0.1-0.6); MONO % 7.5 % (1.0-6.0); RBC 4.98 10^6/uL (3.5-6.1); RED CELL DISTRIBUTION WIDTH 16.8 % (11.5-14.5); WHITE BLOOD COUNT 7.4 10^3/ul (4.5-11.0)
[2018-04-23 07:58] LABS: ALT/SGPT 105 U/L (7-56); AST/SGOT 246 U/L (14-36); BLOOD UREA NITROGEN 11 mg/dL (7-21); CALCIUM 9.1 mg/dL (8.4-10.5); GFR NON-AFRICAN AMERICAN > 60; LIPASE 87 U/L (23-300)
[2018-04-23] MEDS ORDERED: Morphine 4 mg/ml ISec IVP STA (08:08)
[2018-04-23 08:09] LABS: TROPONIN I < 0.01 ng/mL
[2018-04-23 08:14] LABS: PH,URINE 7.5 (4.7-8.0); URINE BILIRUBIN NEGATIVE (NEGATIVE); URINE BLOOD NEGATIVE (NEGATIVE); URINE GLUCOSE (UA) NEGATIVE (NEGATIVE); URINE LEUKOCYTE ESTERASE NEGATIVE Leu/uL (NEGATIVE); URINE PROTEIN 30 mg/dL (<30 mg/dL)
[2018-04-23 08:15] LABS: URINE APPEARANCE CLEAR (CLEAR); URINE COLOR YELLOW (YELLOW)
[2018-04-23 08:24] LABS: URINE BACTERIA MANY (NEG); URINE RBC 0 - 2 /hpf (0-2)
--- NOTE | 2018-04-23 09:09 | CARD ---
APPROVED REPORT Date of service: 04/23/2018 EKG Measurement Heart [id number] <Conclusion> Normal sinus rhythm borderline Incomplete right bundle branch block borderline ECG
[2018-04-23 09:10] VITALS: RESP 17
--- NOTE | 2018-04-23 09:55 | CT ---
Date of service: 04/23/2018 PROCEDURE: CT Abdomen and Pelvis with contrast HISTORY: H/O gastric sleeve w/ epigastric pain COMPARISON: 02/11/2018 TECHNIQUE: Contrast dose: 150 cc of Omni 350 Radiation dose: Total exam DLP = 1003 mGy-cm. This CT exam was performed using one or more of the following dose reduction techniques: Automated exposure control, adjustment of the mA and/or kV according to patient size, and/or use of iterative reconstruction technique. FINDINGS: LOWER THORAX: Unremarkable. LIVER: Unremarkable. No gross lesion or ductal dilatation. GALLBLADDER AND BILE DUCTS: Unremarkable. PANCREAS: Unremarkable. No gross lesion or ductal dilatation. SPLEEN: Unremarkable. ADRENALS: Unremarkable. No mass. KIDNEYS AND URETERS: Unremarkable. No hydronephrosis. No solid mass. VASCULATURE: Unremarkable. No aortic aneurysm. BOWEL: Unremarkable. No obstruction. No gross mural thickening. A suture line is seen in the stomach. There is no evidence of focal perforation. No evidence of obstruction APPENDIX: Normal appendix. PERITONEUM: Unremarkable. No free fluid. No free air. LYMPH NODES: Unremarkable. No enlarged lymph nodes. BLADDER: Unremarkable. REPRODUCTIVE: Unremarkable BONES: No acute fracture. OTHER FINDINGS: None IMPRESSION: No acute findings
[2018-04-23 10:51] VITALS: BP 159/92; PULSE 69; TEMP 98; O2SAT 100
== END 2018-04-23 10:56 | disposition home or self-care (01) ==
LOC: ED 06:16
DX: K29.70 Gastritis, unspecified, without bleeding (principal); E66.9 Obesity, unspecified; Z98.84 Bariatric surgery status
CPT/HCPCS: 74177; 80053; 81001; 82803; 83690; 84484; 85025; 93005; 96361; 96374; 96375; 99285; J2270; J2765; J7030; Q9967

== ENCOUNTER 2018-12-18 06:54 | Emergency (ER) | payer OTHER ==
[2018-12-18 07:14] VITALS: BMI 51.1
[2018-12-18 07:28] VITALS: BP 125/81; PULSE 73; RESP 19; TEMP 98.3; O2SAT 99
--- NOTE | 2018-12-18 07:52 | ED PDOC ---
Arrival/HPI - General Historian: Patient - History of Present Illness Narrative History of Present Illness (Text): 12/18/18 07:47 CC: right leg pain HPI: 38 yo female w/ PMH of gastric sleeve surgery comes to ED for evaluation of right hip and leg pain. Patient states the pain started earlier today at 3 am when she woke up to use the bathroom. At that time she brushed off the pain and went to sleep, however, pain was still present when she woke up today prompting her to come to the ED. Patient states the pain is sharp pain located in the right upper thigh diffusely. Patient states that yesterday she had a very stressful exercise class requiring her to three times her normal sets. Exercises include lunges, abs, and leg lifts. Patient states she had a cramp after the exercises during the stretches. Denies previous similar episodes. Patient states she took a Tylenol at home for the pain. Denies fevers, chills, chest pain, sob, n/v, constipation or diarrhea, and dysuria. Time/Duration: 4-6 hours Symptom Onset: Sudden Symptom Course: Unchanged Quality: Other (sharp) Severity Level: 6 Activities at Onset: Rest Context: Exertion <Laura Pike - Last Filed: 12/18/18 07:47> <Trevon Stewart - Last Filed: 12/18/18 08:15> - General Chief Complaint: Lower Extremity Problem/Injury Time Seen by Provider: 12/18/18 07:22 Past Medical History - Provider Review Nursing Documentation Reviewed: Yes - Tetanus Immunization Tetanus Immunization: Unknown - Past Medical History Past Medical History: No Previous - Cardiac Hx Cardiac Disorders: No - Pulmonary Hx Respiratory Disorders: No - Neurological Hx Neurological Disorder: No - HEENT Hx HEENT Disorder: No - Renal Hx Renal Disorder: No - Endocrine/Metabolic Hx Endocrine Disorders: No - Hematological/Oncological Hx Blood Disorders: No - Integumentary Hx Dermatological Disorder: No - Musculoskeletal/Rheumatological Hx Falls: No - Gastrointestinal Hx Gastrointestinal Disorders: No - Genitourinary/Gynecological Hx Genitourinary Disorders: No - Psychiatric Hx Psychophysiologic Disorder: No Hx Substance Use: No - Surgical History Hx Gastric Bypass Surgery: Yes (sleeve) Other/Comment: ectopic pregnanacy 2007, gastric sleeve - Anesthesia Hx Anesthesia: Yes - Suicidal Assessment Feels Threatened In Home Enviroment: No <Laura Pike - Last Filed: 12/18/18 07:47> Family/Social History - Physician Review Nursing Documentation Reviewed: Yes Family/Social History: No Known Family HX Smoking Status: Never Smoked Hx Alcohol Use: No Hx Substance Use: No Hx Substance Use Treatment: No <Laura Pike - Last Filed: 12/18/18 07:47> Allergies/Home Meds <Laura Pike - Last Filed: 12/18/18 07:47> <TerryTrevon - Last Filed: 12/18/18 08:15> Allergies/Adverse Reactions: Allergies No Known Allergies Allergy (Verified 12/18/18 07:14) Home Medications: Home Meds Medication Instructions Recorded Confirmed Ranitidine HCl [Zantac] 0 mg PO DAILY 12/18/18 12/18/18 Review of Systems - Review of Systems Constitutional: Normal. absent: Fatigue, Weight Change, Fevers, Night Sweats Eyes: Normal. absent: Vision Changes, Photophobia ENT: Normal. absent: Hearing Changes, Tinnitus Respiratory: Normal. absent: SOB, Cough, Sputum, Wheezing Cardiovascular: Normal. absent: Chest Pain, Palpitations, Edema Gastrointestinal: Normal. absent: Abdominal Pain, Stool Changes, Constipation, Nausea Genitourinary Female: Normal. absent: Dysuria, Frequency, Hematuria Musculoskeletal: Myalgias. absent: Normal, Arthralgias, Back Pain Skin: Normal. absent: Rash, Pruritis, Skin Lesions, Laceration Neurological: Normal. absent: Headache, Dizziness, Focal Weakness Endocrine: Normal. absent: Diaphoresis, Polyuria Psychiatric: Normal. absent: Anxiety, Depression <Laura Pike - Last Filed: 12/18/18 07:47> - Physician Review All systems were reviewed & negative as marked: Yes <Trevon Stewart - Last Filed: 12/18/18 08:15> Physical Exam Vital Signs Reviewed: Yes Vital Signs Temp Pulse Resp BP Pulse Ox 12/18/18 07:15 98.3 F 73 19 125/81 99 Temperature: Afebrile Blood Pressure: Normal Pulse: Regular Respiratory Rate: Normal Appearance: Positive for: Well-Appearing, Non-Toxic, Comfortable Pain Distress: None Mental Status: Positive for: Alert and Oriented X 3 - Systems Exam Head: Present: Atraumatic, Normocephalic Pupils: Present: PERRL Extroacular Muscles: Present: EOMI Mouth: Present: Moist Mucous Membranes Respiratory/Chest: Present: Clear to Auscultation, Good Air Exchange. No: Respiratory Distress, Accessory Muscle Use Cardiovascular: Present: Regular Rate and Rhythm, Normal S1, S2. No: Murmurs Abdomen: Present: Normal Bowel Sounds. No: Tenderness, Distention, Peritoneal Signs, Rebound, Guarding Lower Extremity: Present: Normal Inspection, Normal ROM, Tenderness (tenderness to paplation in the right thigh), Other (pain with hip flexion). No: Edema, Cyanosis Neurological: Present: GCS=15, CN II-XII Intact, Speech Normal Skin: Present: Warm, Dry, Normal Color. No: Rashes Psychiatric: Present: Alert, Oriented x 3, Normal Insight, Normal Concentration <Laura Pike - Last Filed: 12/18/18 07:47> Vital Signs Temp Pulse Resp BP Pulse Ox 12/18/18 07:15 98.3 F 73 19 125/81 99 <Trevon Stewart - Last Filed: 12/18/18 08:15> Medical Decision Making ED Course and Treatment: 12/18/18 07:54 Impression 38 yo female w/ PMH of gastric sleeve surgery comes to ED for evaluation of right hip and leg pain. Plan -Flexeril -Urine test Prior Visits All prior documentation and lab work reviewed prior to evaluation Progress Notes Likely MSK somatic dysfunction in context of increased exertion with hip flexors yesterday Will discharge with muscle relaxant and advised patient to use Tylenol as needed for pain Re-evaluation Time: 07:59 Reassessment Condition: Re-examined, Unchanged <Laura Pike - Last Filed: 12/18/18 07:47> ED Course and Treatment: Patient Seen with Resident: In agreement with resident note which contains more details about the patient. Patient seen and evaluated with resident. Came up with plan and treatment together. 38 year old female presents complaining of right hip and right leg pain that began approximately 5-6 hours ago. Patient reports she had a very stressful exercise class yesterday. Plan: -- Flexeril -- Urine Test -- Reassess/dispo - Medication Orders Current Medication Orders: Discontinued Medications Cyclobenzaprine HCl (Flexeril) 10 mg PO STAT STA Stop: 12/18/18 07:48 Last Admin: 12/18/18 08:03 Dose: 10 mg <Trevon Stewart - Last Filed: 12/18/18 08:15> - PA / [employer] / Resident Statement PAULINE has reviewed & agrees with the documentation as recorded. / has examined the patient and agrees with the treatment plan. - Scribe Statement The provider has reviewed the documentation as recorded by the Nina Carter Provider Scribe Attestation: All medical record entries made by the Jenaroibhermelinda were at my direction and personally dictated by me. I have reviewed the chart and agree that the record accurately reflects my personal performance of the history, physical exam, medical decision making, and the department course for this patient. I have also personally directed, reviewed, and agree with the discharge instructions and disposition. <Trevon Stewart - Last Filed: 12/18/18 08:15> Disposition/Present on Arrival - Present on Arrival Any Indicators Present on Arrival: No History of DVT/PE: No History of Uncontrolled Diabetes: No Urinary Catheter: No History of Decub. Ulcer: No History Surgical Site Infection Following: None - Disposition Have Diagnosis and Disposition been Completed?: Yes Disposition Time: 07:57 Patient Plan: Discharge <Laura Pike - Last Filed: 12/18/18 07:47> <Trevon Stewart - Last Filed: 12/18/18 08:15> - Disposition Diagnosis: Tendinitis of right hip flexor, Overuse injury Disposition: HOME/ ROUTINE Patient Problems: Current Active Problems Problem Status Onset Overuse injury Acute Condition: FAIR Discharge Instructions (ExitCare): Hip Pain (DC) Additional Instructions: 1. Please followup with primary medical doctor within a week of discharge from hospital. 2. If symptoms worsen please return to hospital. 3. Patient was explained that it will take time to heal and not to overexert herself in the following days. Prescriptions: Cyclobenzaprine [Flexeril] 5 mg PO TID #15 tab Referrals: Joann Bynum MD [Staff Provider] - Follow up with primary Forms: [facility] ([place]an), WORK NOTE
== END 2018-12-18 08:09 | disposition home or self-care (01) ==
LOC: ED 06:54
DX: M77.9 Enthesopathy, unspecified (principal)